=== PATIENT | female | born 1970 | race Caucasian/White ===

== ENCOUNTER 2023-12-24 10:57 | Emergency (ER) | payer OTHER ==
[~2023-12-24] VITALS: Ht 157.5 cm; Wt 78.0 kg
[2023-12-24 11:13] VITALS: BP 152/95; TEMP 99.8
[2023-12-24] MEDS: ipratropium/albuterol 3ml nebule NEB PRN (12:28)
[2023-12-24 12:29] VITALS: PULSE 108; RESP 20; O2SAT 99
[2023-12-24 12:34] VITALS: PULSE 109; RESP 20; O2SAT 100
[2023-12-24] MEDS: dexamethasone 4mg tablet PO ONE (12:45)
[2023-12-24] MEDS ORDERED: BENZ-38 PO ×2 (14:12→14:19)
[2023-12-24] MEDS ORDERED: ALBU8HFA INH (14:12)
== END 2023-12-24 14:36 | disposition home or self-care (01) ==
LOC: ER 10:58
DX: J20.9 Acute bronchitis, unspecified (principal); Z20.822 Contact with and (suspected) exposure to COVID-19; R05.9 Cough, unspecified; Z91.040 Latex allergy status; Z88.6 Allergy status to analgesic agent; Z79.899 Other long term (current) drug therapy
CPT/HCPCS: 36415; 71045; 87502; 87503; 87811; 94640; 94760; 99284